=== PATIENT | male | born 2005 | race African-American/Black ===

== ENCOUNTER → 2025-04-11 | Day surgery (SDC) | payer MEDICAID ==
[~2025-04-11] VITALS: Ht 182.9 cm; Wt 104.3 kg
[~2025-04-11] MED LIST: ALBU18HF2 IH; BUPIVACAINE HCL/PF 0.5% (5MG/ML) 10ML ONE; CEFAZOLIN SODIUM 1000MG/VIAL ONE; FENTANYL CITRATE/PF 50MCG/ML 2ML VIAL ONE; GLYCOPYRROLATE 0.2 MG/ML 2ML VIAL ONE; HYDROMORPHONE HCL/PF 1MG/ML INJ ONE; METOCLOPRAMIDE HCL 10MG/2ML VIAL ONE; MIDAZOLAM HCL 2 MG/2 ML VIAL ONE; NEOSTIGMINE METHYLSULFATE 1MG/ML 10 ML VIAL ONE; ONDANSETRON HCL 4MG/2ML INJ IV PRN; ONDANSETRON HCL 4MG/2ML INJ ONE; PROPOFOL 200MG/20ML VIAL IV ONE; ROCURONIUM BROMIDE 10MG/ML VIAL 5ML IV ONE; SKIN ADHESIVE 0.7 GM EA TOP ONE; SUGAMMADEX SODIUM 200MG/2ML VIAL IV ONE
[2025-04-11] MEDS: LACTATED RINGERS 1,000 ML IV SCH (08:19)
[2025-04-11] MEDS: HYDROMORPHONE HCL/PF 1MG/ML INJ IV PRN (12:18)
[2025-04-11 13:11] VITALS: BP 133/86; PULSE 90; RESP 20
[2025-04-11] MEDS: ACETAMINOPHEN WITH CODEINE 300/30MG TABLET PO SCH (13:11)
== END | disposition home or self-care (01) ==
LOC: OR 07:11
PROVIDERS: ATTEND Surgery
DX: K42.9 Umbilical hernia without obstruction or gangrene (principal); Z79.899 Other long term (current) drug therapy; Z98.890 Other specified postprocedural states
CPT/HCPCS: 49593; J2710; J3010; J0665; J0690; J3490 ×2; J2765; J2250; J2405; J2704; J1171; C1781